=== PATIENT | female | born 2000 | race Caucasian/White ===

== ENCOUNTER 2018-07-16 22:38 | Emergency (ER) | payer BC ==
[2018-07-16] MEDS ORDERED: OXYCODONE/APAP 5/325 TAB PO ONE (23:39)
[2018-07-16] MEDS ORDERED: OXYCODONE/APAP 5/325MG PREPACK#4 BTL TAKEHOME ONE (23:39)
--- NOTE | 2018-07-16 23:44 | EDPHY ---
General Time Seen by Provider: 07/16/18 23:20 Narrative: CHIEF COMPLAINT: Hand injury HISTORY OF PRESENT ILLNESS: Patient presents by private vehicle with complaints of right hand pain. She was playing soccer this evening when she tried to stop a shot with her hands, bending her right hand back awkwardly. She felt a sudden onset of pain and heard a snapping sensation. She has severe pain in the right hand, toward the base of the metacarpals centrally. She has no pain in the right forearm or elbow. She has minimal pain in the right wrist. Worse with palpation and movement. Improved at rest. No wrist drop. No pain or injury elsewhere. No other associated complaints or modifying factors. DOMINANT EXTREMITY: Right-hand dominant ESTABLISHED ORTHOPEDIST: None locally REVIEW OF SYSTEMS: Ten systems reviewed and are negative unless otherwise noted in the HPI PAST MEDICAL HISTORY: Uncomplicated PAST SURGICAL HISTORY: No surgical history SOCIAL HISTORY: [employer] student. Originally from [facility] FAMILY HISTORY: Noncontributory EXAMINATION: General Appearance: Alert, no distress Cardiovascular: Radial Pulses symmetric 2+. Brisk cap refill the fingers right hand. Neurological: A&O, light sensory symmetric, interossei strength symmetric. Jewelry Appraiser strength not tested due to pain Skin: Warm and dry, no rash. No petechiae. No purpura. No puncture laceration Extremities: Moderate tenderness and mild edema to the dorsum of the right hand over the 3rd and 4th metacarpals. There is no ecchymosis. No puncture. Range of motion of the wrist symmetric. Range of motion of the fingers intact but painful with flexion extension. Interossei symmetric. No tenderness of the proximal forearm or elbow. Full extension of the elbows without pain. There is no tenderness in the anatomic snuffbox of the right upper extremity. Psychiatric: Mood and affect normal DIFFERENTIAL DIAGNOSES: Including but not limited to sprain, strain, fracture, dislocation, subluxation MDM: 11:20 p.m. Acute injury to the right hand and wrist after playing soccer this evening. She has pain over the metacarpals of the right hand minimally on the wrist. No pain in the elbow, proximal forearm, finger tips her shoulder per x-ray is pending. She has no acute distress. 11:50 p.m. Acute oblique fractures of the 3rd and 4th metacarpals with apex angulation. She is neuro intact distally. There is no snuffbox tenderness. She is neuro intact distal to the injuries. She will be placed in a volar splint for immobilization. We discussed rest, ice and elevation. We discussed mandatory follow up with hand surgeon for definitive care as she will need casting versus ORIF. Short course of Percocet pain medication. ED precautions discussed. She has been placed in a volar splint and I have re-evaluated her with CMS intact. She is comfortable this plan. Discharged home stable condition. Procedure: splint placement Indication: Metacarpal fractures Consent: Verbal Description: Ortho glass volar splint placed without difficulty and with adequate padding. She is CMS intact postprocedure. Tolerated well. SUPERVISION: This patient was independently evaluated without direct involvement of or examination by the attending physician. - Diagnostics Imaging Results: Imaging Impressions Hand X-Ray 07/16/18 23:06 Impression: Oblique proximal third and mid shaft fourth metacarpal fractures. Wrist X-Ray 07/16/18 23:06 Impression: Third and fourth metacarpal fractures. - History Smoking Status: Never smoked - Objective Vital Signs: Initial Vital Signs Temperature (C) 99.1 F 07/16/18 22:42 Heart Rate 76 07/16/18 22:42 Respiratory Rate 16 07/16/18 22:42 Blood Pressure 114/77 07/16/18 22:42 O2 Sat (%) 95 07/16/18 22:42 O2 Delivery Mode Room Air Allergies/Adverse Reactions: No Known Allergies Allergy (Unverified 07/16/18 22:44) Home Medications: Medication Instructions Recorded oxyCODONE HCL/ACETAMINOPHEN 1 each PO Q4-6PRN PRN #9 tablet 07/16/18 [Percocet 5-325 mg Tablet] Departure - Departure Disposition: Home, Routine, Self-Care Clinical Impression: Displaced fracture of shaft of third metacarpal bone, right hand, initial encounter for closed fracture, Displaced fracture of shaft of fourth metacarpal bone, right hand, initial encounter for closed fracture Condition: Good Instructions: Hand Fracture (ED), Oxycodone/Acetaminophen (By mouth) Additional Instructions: 1. Keep your splint in place at all times 2. Ice and elevate often 3. Contact the hand surgeon Dr. Kvng Vegas tomorrow morning for outpatient definitive care 4. Pain medication as prescribed as needed 5. ED precautions as discussed Referrals: Kvng Vegas MD [Medical Doctor] - As per Instructions Jose Varner MD [Medical Doctor] - As per Instructions Stand Alone Forms: School Excuse Prescriptions: oxyCODONE HCL/ACETAMINOPHEN [Percocet 5-325 mg Tablet] 1 each PO Q4-6PRN PRN #9 tablet PRN Reason: Pain, Breakthrough
[2018-07-17 00:24] VITALS: BP 128/91
== END 2018-07-17 00:24 | disposition home or self-care (01) ==
PROC: 2W3EX1Z Immobilization of Right Hand using Splint (ICD-10-PCS; principal; 2018-07-16)
DX: S62.322A Displaced fracture of shaft of third metacarpal bone, right hand, initial encounter for closed fracture (principal); S62.324A Displaced fracture of shaft of fourth metacarpal bone, right hand, initial encounter for closed fracture; W21.02XA Struck by soccer ball, initial encounter; Y93.66 Activity, soccer; Y92.322 Soccer field as the place of occurrence of the external cause